=== PATIENT | female | born 1970 | race American Indian/Alaskan Native ===

== ENCOUNTER 2017-03-06 11:00 | Outpatient (CLI) | payer OTHER | END 2017-03-06 11:01 | disposition home or self-care (01) | LOC: SLR 11:00 | PROVIDERS: ATTEND Specialist | DX: G47.33 Obstructive sleep apnea (adult) (pediatric) (principal) | CPT/HCPCS: 95810 ==

== ENCOUNTER 2018-06-15 11:00 | Outpatient (CLI) | payer MEDICAID | END 2018-06-15 11:01 | disposition home or self-care (01) | LOC: SLR 11:00 | PROVIDERS: ATTEND Otolaryngology | DX: G47.33 Obstructive sleep apnea (adult) (pediatric) (principal); R40.0 Somnolence; R06.83 Snoring; I10 Essential (primary) hypertension; K21.9 Gastro-esophageal reflux disease without esophagitis; E66.9 Obesity, unspecified; M19.90 Unspecified osteoarthritis, unspecified site; Z90.89 Acquired absence of other organs | CPT/HCPCS: G0399 ==

== ENCOUNTER 2018-06-16 09:03 | Outpatient (CLI) | payer MEDICAID ==
--- NOTE | 2018-06-16 10:32 | Ultrasound Report ---
ULTRASOUND SOFT TISSUE HEAD AND NECK History: Localized swelling lump, neck Findings: Targeted ultrasound was performed in the right side of the neck. No suspicious mass or fluid collection. A normal-appearing right jugular lymph node is noted measuring 1.3 x 0.5 x 0.8 cm. Impression: No suspicious mass identified.
== END 2018-06-16 09:04 | disposition home or self-care (01) ==
LOC: US 09:03
PROVIDERS: ATTEND Otolaryngology
DX: R22.1 Localized swelling, mass and lump, neck (principal); I10 Essential (primary) hypertension; K21.9 Gastro-esophageal reflux disease without esophagitis; M19.90 Unspecified osteoarthritis, unspecified site; E66.9 Obesity, unspecified; Z90.89 Acquired absence of other organs
CPT/HCPCS: 76536

== ENCOUNTER 2018-07-21 18:09 | Emergency (ER) | payer MEDICAID ==
--- NOTE | 2018-07-21 18:51 | Emergency Department Report ---
Chief Complaint: Head Injury Stated Complaint: BLURRED VISION/SOB/ABD CRAMPS Time Seen by Provider: 07/21/18 18:48 - HPI History of Present Illness: tripped and fell down the steps that occurred a week ago has right sided JAMES states she has "blurry vision" no LOC no N/V no numbness or weakness MSE screening note: Focused history performed Due to findings the following was ordered: Ct head ED Disposition for MSE Condition: Stable
--- NOTE | 2018-07-21 20:31 | Cat Scan Report ---
PROCEDURE: CT HEAD/BRAIN WO CON TECHNIQUE: CT images of the head were obtained without the use of IV contrast HISTORY: fall, head injury, "blurry vision" COMPARISONS: None available FINDINGS: There is no CT evidence of intracranial mass, hemorrhage, acute territorial infarction, or hydrocepha lyssa. The intracranial arteries are symmetric in density. No acute fracture. The visualized paranasal sinuses and mastoids are aerated. IMPRESSION: No acute abnormality is seen. This document is electronically signed by Eloina Jarrell MD., July 21 2018 08:29:43 PM ET
--- NOTE | 2018-07-22 00:32 | Emergency Department Report ---
ED Fall HPI - General Chief Complaint: Head Injury Stated Complaint: BLURRED VISION/SOB/ABD CRAMPS Time Seen by Provider: 07/21/18 18:48 Source: patient Mode of arrival: Ambulatory - History of Present Illness Initial Comments: 48-year-old -[place] female presents to the emergency room stating that she fell down 10 stairs 1 week ago and hit the back of her head. Patient reported she was having blurred vision memory loss and leg cramping and lower back pain since the injury. Patient denies any loss of bladder or bowel control denies loss of consciousness. Patient reports she took Tylenol in aspirin. Patient reports this happened at home when she was coming down stairs that her 8-year-old left a toy that she slipped on. Patient reports that the past medical history hypertension. MD Complaint: fall When Fall Occurred: other (1 week ago) Place Fall Occurred: home Loss of Consciousness: none Prolonged Down Time?: no Symptoms Prior to Fall: none Location: head - Related Data Home Medications Medication Instructions Recorded Confirmed Last Taken Carvedilol [Coreg] 3.125 mg PO QHS 06/11/16 06/12/16 06/12/16 07:30 Lisinopril/Hydrochlorothiazide 1 tab PO QHS 06/11/16 06/12/16 06/12/16 07:30 [Zestoretic 20-25 mg] Ranitidine HCl [Heartburn Relief] 75 mg PO QDAY PRN 06/11/16 06/12/16 1 Week Ago ~06/05/16 buPROPion SR [Wellbutrin SR] 150 mg PO QAM 06/11/16 06/12/16 2 Days Ago ~06/10/16 Previous Rx's Medication Instructions Recorded Last Taken Type Ondansetron [Zofran TAB] 4 mg PO Q8HR PRN #14 tablet 06/12/16 Unknown Rx oxyCODONE /ACETAMINOPHEN [Percocet 1 tab PO Q4HR PRN #20 tab 06/12/16 Unknown Rx 5/325] traMADol [Ultram 50 MG tab] 50 mg PO Q6HR PRN #14 tablet 06/12/16 Unknown Rx Ibuprofen [Ibu] 600 mg PO Q8H PRN #30 tablet 07/22/18 Unknown Rx Allergies Allergy/AdvReac Type Severity Reaction Status Date / Time No Known Allergies Allergy Verified 07/21/18 18:17 ED Review of Systems ROS: Stated complaint: BLURRED VISION/SOB/ABD CRAMPS Other details as noted in HPI Comment: All other systems reviewed and negative Constitutional: denies: chills, fever Gastrointestinal: denies: abdominal pain, nausea, diarrhea ED Past Medical Hx - Past Medical History Hx Hypertension: Yes (FOR 14 YRS; no chest pain) Hx GERD: Yes Hx Renal Disease: No Hx Arthritis: Yes (IN RIGHT HIP) Hx Seizures: No Hx HIV: No Additional medical history: PITUITARY GLAND TUMOR - Surgical History Additional Surgical History: TUBAL LIGATION. HERNIA REPAIR - Social History Smoking Status: Never Smoker Substance Use Type: None - Medications Home Medications: Home Medications Medication Instructions Recorded Confirmed Last Taken Type Carvedilol [Coreg] 3.125 mg PO QHS 06/11/16 06/12/16 06/12/16 07:30 History Lisinopril/Hydrochlorothiazide 1 tab PO QHS 06/11/16 06/12/16 06/12/16 07:30 History [Zestoretic 20-25 mg] Ranitidine HCl [Heartburn Relief] 75 mg PO QDAY PRN 06/11/16 06/12/16 1 Week Ago History ~06/05/16 buPROPion SR [Wellbutrin SR] 150 mg PO QAM 06/11/16 06/12/16 2 Days Ago History ~06/10/16 Ondansetron [Zofran TAB] 4 mg PO Q8HR PRN #14 tablet 06/12/16 Unknown Rx oxyCODONE /ACETAMINOPHEN [Percocet 1 tab PO Q4HR PRN #20 tab 06/12/16 Unknown Rx 5/325] traMADol [Ultram 50 MG tab] 50 mg PO Q6HR PRN #14 tablet 06/12/16 Unknown Rx Ibuprofen [Ibu] 600 mg PO Q8H PRN #30 tablet 07/22/18 Unknown Rx ED Physical Exam - General Limitations: No Limitations General appearance: alert, in no apparent distress - Head Head exam: Present: atraumatic, normocephalic - Eye Eye exam: Present: normal appearance - ENT ENT exam: Present: mucous membranes moist - Expanded Neurological Exam Expanded Cranial nerves: EOM's Intact: Normal, Gag Reflex: Normal, Tongue Deviation: Normal, Nystagmus: Normal, Facial Sensation: Normal, Facial Palsy with Forehead Movement: Normal, Facial Palsy without Forehead Movement: Normal Cerebellar function: Finger to Nose: Normal, Heel to Rodriguez: Normal, Romberg: Normal Upper motor neuron: Erick Neglect: Normal, Pronator Drift: Normal, Babinski Sign: Normal, Sensory Extinction: Normal Sensory exam: Upper Extremity Light Touch: Normal, Upper Extremity Pin Prick: Normal, Upper Extremity Temperature: Normal, UE 2 Point Discrimination: Normal, Lower Extremity Light Touch: Normal, Lower Extremity Pin Prick: Normal, Lower Extremity Temperature: Normal Motor strength exam: RUE: 5, LUE: 5, RLE: 5, LLE: 5 Best Eye Response (Elmer): (4) open spontaneously Best Motor Response (Elmer): (6) obeys commands Best Verbal Response (Elmer): (5) oriented Bridger Total: 15 - Psychiatric Psychiatric exam: Present: normal affect, normal mood - Skin Skin exam: Present: warm, dry, intact, normal color. Absent: rash ED Course Vital Signs 07/21/18 07/21/18 18:46 23:39 Temperature 98.7 F Pulse Rate 83 78 Respiratory 18 18 Rate Blood Pressure 151/91 Blood Pressure 162/99 [Left] O2 Sat by Pulse 100 99 Oximetry ED Medical Decision Making - Medical Decision Making Patient has been evaluated by this provider ACC.. CT negative Patient be discharged home on ibuprofen. Patient reports she does not need a work excuse. Critical care attestation.: If time is entered above; I have spent that time in minutes in the direct care of this critically ill patient, excluding procedure time. ED Disposition Clinical Impression: Fall Qualifiers: Encounter type: initial encounter Qualified Code(s): W19.XXXA - Unspecified fall, initial encounter Minor head injury without loss of consciousness Qualifiers: Encounter type: initial encounter Qualified Code(s): S09.90XA - Unspecified injury of head, initial encounter Disposition: TO HOME OR SELFCARE Is pt being admited?: No Does the pt Need Aspirin: No Condition: Stable Instructions: Fall Prevention (ED), Minor Head Injury (ED) Additional Instructions: Pain medication as needed. Prescriptions: Ibuprofen [Ibu] 600 mg PO Q8H PRN #30 tablet PRN Reason: Pain , Severe (7-10) Referrals: DARYL CAMP MD [Primary Care Provider] - 3-5 Days
[2018-07-22 19:33] VITALS: BP 162/99
== END 2018-07-22 00:35 | disposition home or self-care (01) ==
LOC: ED 18:09
DX: S09.90XA Unspecified injury of head, initial encounter (principal); I10 Essential (primary) hypertension; K21.9 Gastro-esophageal reflux disease without esophagitis; M25.551 Pain in right hip; Z98.51 Tubal ligation status; Z98.890 Other specified postprocedural states; W10.8XXA Fall (on) (from) other stairs and steps, initial encounter; Y93.89 Activity, other specified; Y92.098 Other place in other non-institutional residence as the place of occurrence of the external cause; Y99.8 Other external cause status
CPT/HCPCS: 70450; 99283

== ENCOUNTER 2018-09-09 07:05 | Day surgery (SDC) | payer MEDICAID ==
[~2018-09-09 07:05] MED LIST: NACL 0.9% 1000 ML 1,000 ML IV SCH
--- NOTE | 2018-09-09 08:36 | Anesthesia Day of Surgery ---
Anesthesia Day of Surgery - Day of Surgery Patient Examined: Yes Patient H&P Reviewed: Yes Patient is NPO: Yes Beta Blockers: Yes
--- NOTE | 2018-09-09 08:37 | Anesthesia Consultation ---
Anesthesia Consult and Med Hx Date of service: 09/09/18 - Airway Anesthetic Teeth Evaluation: Good ROM Head & Neck: Adequate Mental/Hyoid Distance: Adequate Mallampati Class: Class II Intubation Access Assessment: Good - Pre-Operative Health Status ASA Pre-Surgery Classification: ASA2 Proposed Anesthetic Plan: MAC - Pulmonary Hx Smoking: Yes (CIGARETTES/ 2 CIGARETTES PD X 30 YRS) Hx Sleep Apnea: No - Cardiovascular System Hx Hypertension: Yes - Central Nervous System Hx Seizures: No Hx Psychiatric Problems: Yes (Depression) - Gastrointestinal Hx Ulcer: No Hx Gastroesophageal Reflux Disease: Yes - Endocrine Hx Renal Disease: No Hx Non-Insulin Dependent Diabetes: No - Hematic Hx Anemia: No - Other Systems Hx Cancer: No Hx Obesity: Yes (BMI= 39)
[2018-09-09] MEDS ORDERED: DIPRIVAN 10 MG/ML IV ONE (10:19)
[2018-09-09 11:19] VITALS: BP 123/69
== END 2018-09-09 07:06 | disposition home or self-care (01) ==
LOC: GIO 07:05
PROVIDERS: ATTEND Specialist
DX: K30 Functional dyspepsia (principal); K44.9 Diaphragmatic hernia without obstruction or gangrene; E66.01 Morbid (severe) obesity due to excess calories; I10 Essential (primary) hypertension; K21.9 Gastro-esophageal reflux disease without esophagitis; M19.90 Unspecified osteoarthritis, unspecified site; F32.9 Major depressive disorder, single episode, unspecified; Z98.84 Bariatric surgery status; Z79.899 Other long term (current) drug therapy; Z87.891 Personal history of nicotine dependence; Z98.41 Cataract extraction status, right eye; Z68.41 Body mass index [BMI] 40.0-44.9, adult; Z98.51 Tubal ligation status; Z98.890 Other specified postprocedural states
CPT/HCPCS: 43235; 81025; J2704; J7030

== ENCOUNTER 2018-09-16 05:41 | Observation (INO) | payer MEDICAID ==
--- NOTE | 2018-09-11 10:04 | Anesthesia Consultation ---
Anesthesia Consult and Med Hx Date of service: 09/16/18 - Airway Anesthetic Teeth Evaluation: Good ROM Head & Neck: Adequate Mallampati Class: Class II Intubation Access Assessment: Good - Pre-Operative Health Status ASA Pre-Surgery Classification: ASA3 Proposed Anesthetic Plan: General - Pulmonary Hx Smoking: Yes (SINCE AGE 15; QUIT 2013) Hx Sleep Apnea: Yes - Cardiovascular System Hx Hypertension: Yes (2002) - Central Nervous System Hx Seizures: No Hx Psychiatric Problems: Yes - Gastrointestinal Hx Ulcer: No - Endocrine Hx Renal Disease: No Hx Non-Insulin Dependent Diabetes: No - Hematic Hx Anemia: No - Other Systems Hx Alcohol Use: Yes Hx Cancer: No Hx Obesity: Yes
[~2018-09-16 05:41] MED LIST changes: +ANCEF/STERILE WATER 2 GM/20 ML 2 GM/20 ML SYRINGE IV NR; +FLAGYL 500 MG/100 ML 500 MG/100 ML BAG IV NR; +LOVENOX SUB-Q NR; -NACL 0.9% 1000 ML 1,000 ML IV SCH; +TRANSDERM-SCOP TD SCH
[2018-09-16] MEDS ORDERED: LACTATED RINGERS 1,000 ML IV SCH ×2 (06:00→09:00)
[2018-09-16] MEDS ORDERED: NACL BACTERIOSTATIC INFILTRATI ONE (06:30)
[2018-09-16] MEDS ORDERED: VERSED IV NR (06:54)
[2018-09-16] MEDS ORDERED: PEPCID IV NR (07:00)
[2018-09-16] MEDS ORDERED: XYLOCAINE 1% 20 mL ONE (07:13)
[2018-09-16] MEDS ORDERED: MARCAINE-EPI 0.5%-1:200,000 INFILTRATI ONE ×2 (07:13→08:21)
[2018-09-16] MEDS ORDERED: DIPRIVAN 10 MG/ML IV ONE (07:15)
[2018-09-16] MEDS ORDERED: SUBLIMAZE ONE (07:15)
[2018-09-16] MEDS ORDERED: ROBINUL ONE ×2 (07:15→09:08)
[2018-09-16] MEDS ORDERED: LOVENOX SUB-Q NR (08:00)
[2018-09-16] MEDS ORDERED: ANCEF/STERILE WATER 2 GM/20 ML 2 GM/20 ML SYRINGE IV NR (08:00)
[2018-09-16] MEDS ORDERED: FLAGYL 500 MG/100 ML 500 MG/100 ML BAG IV NR (08:00)
[2018-09-16] MEDS ORDERED: NORCO PO PRN (08:05)
[2018-09-16] MEDS ORDERED: REGLAN IV PRN (08:05)
[2018-09-16] MEDS ORDERED: APRESOLINE IV PRN (08:05)
[2018-09-16] MEDS ORDERED: ZOFRAN IV PRN (08:05)
[2018-09-16] MEDS ORDERED: NACL 0.9% 250ML 250 ML ONE (08:07)
--- NOTE | 2018-09-16 08:09 | Anesthesia Day of Surgery ---
Anesthesia Day of Surgery - Day of Surgery Patient Examined: Yes Patient H&P Reviewed: Yes Patient is NPO: Yes Beta Blockers: Yes (took this morning)
[2018-09-16] MEDS ORDERED: XYLOCAINE 1% 20 mL INFILTRATI ONE (08:22)
[2018-09-16] MEDS ORDERED: NACL 0.9% IR ONE ×2 (08:23→12:37)
[2018-09-16] MEDS ORDERED: QUELICIN ONE (09:08)
[2018-09-16] MEDS ORDERED: ZEMURON IV ONE (09:08)
[2018-09-16] MEDS ORDERED: XYLOCAINE MPF 2% ONE (09:08)
[2018-09-16] MEDS ORDERED: BLOXIVERZ ONE (09:08)
[2018-09-16] MEDS ORDERED: DECADRON ONE (09:08)
[2018-09-16] MEDS: SUBLIMAZE IV PRN ×2 (09:40→10:00)
[2018-09-16] MEDS: MYLICON PO PRN ×2 (10:30→15:30)
[2018-09-16] MEDS: DILAUDID IV PRN ×2 (12:32→19:31)
[2018-09-16] MEDS: COREG PO SCH ×2 (13:18→22:20)
[2018-09-16] MEDS: ZESTRIL PO SCH (13:18)
[2018-09-16] MEDS: TORADOL IV SCH ×3 (15:29→22:20)
--- NOTE | 2018-09-16 15:30 | Post Anesthesia Evaluation ---
- Post Anesthesia Evaluation Patient Participated: Yes Airway Patent: Yes Stable Respiratory Function: Yes Nausea/Vomiting: No Temp > 96.8F: Yes Pain Manageable: Yes Adequeate Hydration: Yes Anesthesia Complications: No
[2018-09-17] MEDS: DILAUDID IV PRN (02:19)
[2018-09-17 05:15] LABS: Basophils % (Auto) 0.1 % (0.0-1.8); Hematocrit 32.9 % (30.3-42.9); Lymphocytes # (Auto) 1.4 K/mm3 (1.2-5.4); Lymphocytes % (Auto) 7.5 % (13.4-35.0); Mean Corpuscular HGB Conc 33 % (30-34); Mean Corpuscular Volume 75 fl (79-97); Monocytes # (Auto) 0.9 K/mm3 (0.0-0.8); Monocytes % (Auto) 4.9 % (0.0-7.3); Platelet Count 405 K/mm3 (140-440); Red Blood Count 4.39 M/mm3 (3.65-5.03); Red Cell Distribution Width 15.4 % (13.2-15.2)
[2018-09-17] MEDS: TORADOL IV SCH ×2 (05:15→08:29)
[2018-09-17 05:41] LABS: Alanine Aminotransferase 19 units/L (7-56); Albumin 3.7 g/dL (3.9-5); BUN/Creatinine Ratio 14; Blood Urea Nitrogen 15 mg/dL (7-17); Calcium 8.5 mg/dL (8.4-10.2); Hemolysis Index 3
--- NOTE | 2018-09-17 06:14 | Discharge Summary ---
Providers - Providers Date of Admission: 09/16/18 08:05 Date of discharge: 09/17/18 Attending physician: LUC ESCAMILLA Primary care physician: DARYL CAMP Hospitalization Reason for admission: postop Condition: Good Procedures: 09/16/18: Laparoscopic RYGB Hospital course: 48F admitted after her operation for routine monitoring. She was managed on the general surgical floor. She had no issues, tolerated a CLD, ambulated, and was dc home POD1. Disposition: DC-01 TO HOME OR SELFCARE Core Measure Documentation - Palliative Care Palliative Care/ Comfort Measures: Not Applicable - Core Measures Any of the following diagnoses?: none - VTE Discharge Requirements Deep Vein Thrombosis/Pulmonary Embolism Present on Admission: No - Acute KS Discharge Requirements Aspirin at discharge: No Reason for no aspirin on DC: Surgical contraindication - Heart Failure Discharge Requirements DAMON/ARB for LVSD if EF <40%: Not Applicable - Stroke Discharge Requirements Statin for LDL = or >70 mg/dl on DC: Not Applicable Exam - Physical Exam Narrative exam: Gen: AAO, NAD Heart: RRR Lungs: Clear Abd: MO, soft, NT, ND. Bandages c/d/i - Constitutional Vitals: Temp Pulse Resp BP Pulse Ox 98.2 F 66 17 131/81 99 09/17/18 05:11 09/17/18 05:11 09/17/18 05:11 09/17/18 05:11 09/17/18 05:11 Plan Diet: clear liquids Wound: keep clean and dry Special Instructions: no heavy lifting Additional Instructions: Vinnie Escamilla as scheduled Follow up with: DARYL CAMP MD [Primary Care Provider] - 7 Days Prescriptions: Ketorolac [Toradol] 10 mg PO Q6H PRN 1 Days #4 tablet PRN Reason: Pain
[2018-09-17] MEDS: ZESTRIL PO SCH ×2 (08:28→10:00)
[2018-09-17] MEDS: COREG PO SCH ×2 (08:29→10:00)
[2018-09-17] MEDS ORDERED: LOVENOX SUB-Q SCH (10:00)
[2018-09-17 12:36] VITALS: BP 110/76
== END 2018-09-17 12:20 | disposition home or self-care (01) ==
LOC: OR 05:41 → 3B-SURG 08:05 → EDSTATUS 12:00
PROVIDERS: ADMIT Specialist; ATTEND Specialist
DX: E66.01 Morbid (severe) obesity due to excess calories (principal); E78.00 Pure hypercholesterolemia, unspecified; R06.02 Shortness of breath; I10 Essential (primary) hypertension; F32.9 Major depressive disorder, single episode, unspecified; E78.5 Hyperlipidemia, unspecified; K30 Functional dyspepsia; K21.9 Gastro-esophageal reflux disease without esophagitis; Z98.890 Other specified postprocedural states
CPT/HCPCS: 36415; 43281; 43644; 80053; 81025; 85025; 96372; 96374; 96375; 96376; A4217; G0378; J0330; J0690; J1100; J1170; J1650; J1885; J2250; J2405; J2704; J2710; J3010; J7050; J7120

== ENCOUNTER 2018-09-22 18:26 | Observation (INO) | payer MEDICAID ==
--- NOTE | 2018-09-22 18:39 | Emergency Department Report ---
Blank Doc - Documentation Documentation: This is a 48-year-old female that presents with chest pain, SOB, and abdominal pain. Patient is 6 days post op for gastro bypass. This initial assessment/diagnostic orders/clinical plan/treatment(s) is/are subject to change based on patient's health status, clinical progression and re- assessment by fellow clinical providers in the ED. Further treatment and workup at subsequent clinical providers discretion. Patient/guardians urged not to elope from the ED as their condition may be serious if not clinically assessed and managed. Initial orders include: 1- Patient sent to MAIN ED for further evaluation and treatment 2- labs 3- EKG 4- CXR
[2018-09-22 19:01] LABS: Basophils # (Auto) 0.2 K/mm3 (0.0-0.1); Basophils % (Auto) 1.2 % (0.0-1.8); Eosinophils # (Auto) 0.6 K/mm3 (0.0-0.4); Eosinophils % (Auto) 4.1 % (0.0-4.3); Hematocrit 37.8 % (30.3-42.9); Hemoglobin 12.2 gm/dl (10.1-14.3); Lymphocytes # (Auto) 2.2 K/mm3 (1.2-5.4); Lymphocytes % (Auto) 14.6 % (13.4-35.0); Mean Corpuscular HGB Conc 32 % (30-34); Mean Corpuscular Volume 75 fl (79-97); Monocytes # (Auto) 0.5 K/mm3 (0.0-0.8); Monocytes % (Auto) 3.6 % (0.0-7.3); Platelet Count 459 K/mm3 (140-440); Red Blood Count 5.06 M/mm3 (3.65-5.03); Red Cell Distribution Width 15.2 % (13.2-15.2)
[2018-09-22 19:06] LABS: INR 1.3 (0.87-1.13)
[2018-09-22 19:07] LABS: Partial Thromboplastin Time 31.2 Sec. (24.2-36.6)
[2018-09-22 19:16] LABS: Alanine Aminotransferase 10 units/L (7-56); Albumin 3.7 g/dL (3.9-5); BUN/Creatinine Ratio 12; Blood Urea Nitrogen 13 mg/dL (7-17); Calcium 9.7 mg/dL (8.4-10.2); Hemolysis Index 6
[2018-09-22] MEDS ORDERED: SUBLIMAZE IV ONE (22:00)
[2018-09-22] MEDS ORDERED: ZOFRAN IV ONE (22:00)
--- NOTE | 2018-09-22 22:05 | Emergency Department Report ---
HPI - General Chief Complaint: Chest Pain Time Seen by Provider: 09/22/18 18:35 - HPI HPI: Room 17 The patient is a 48-year-old female presenting with chief complaint chest pain and abdominal pain. The patient is about 6 days post gastric bypass performed by Dr. Escamilla. The patient states 2 days ago she developed intermittent left- sided chest pain described as sharp in nature and radiating to her back. Patient denies pleurisy or history of fever states she become short of breath with chest pain. Patient denies nausea/vomiting or diaphoresis. The patient states this morning at 03:00 after taking melatonin to rest she developed some epigastric abdominal pain. Patient gives her abdominal pain score of "20/10." Patient states her last stress test occurred April 2018 but she's never had a cardiac catheterization Location: [See above] Duration: [See above] Quality: [See above] Severity: [See above] Modifying factors: [see above] Context: [see above] Mode of transportation: [not driving] ED Past Medical Hx - Past Medical History Previous Medical History?: Yes Hx Hypertension: Yes (2002) Hx GERD: Yes Hx Arthritis: Yes (IN RIGHT HIP) Additional medical history: PITUITARY GLAND TUMOR - Surgical History Past Surgical History?: Yes Additional Surgical History: TUBAL LIGATION. HERNIA REPAIR. Gastric bypass 09/2018 - Family History Family history: no significant - Social History Smoking Status: Former Smoker (none 5 years) Substance Use Type: None (denies illicit drug use), Alcohol (rarely) - Medications Home Medications: Home Medications Medication Instructions Recorded Confirmed Last Taken Type Carvedilol [Coreg] 12.5 mg PO BID 09/10/18 09/16/18 09/16/18 05:20 History Lisinopril/Hydrochlorothiazide 1 tab PO QDAY 09/10/18 09/16/18 09/15/18 History [Zestoretic 20-25 mg] hydrOXYzine HCL [Atarax] 25 mg PO DAILY 09/10/18 09/16/18 09/14/18 History Ketorolac [Toradol] 10 mg PO Q6H PRN 1 Days #4 tablet 09/17/18 Unknown Rx ED Review of Systems ROS: Stated complaint: CHEST PAIN/SOB/STOMACH PAIN Other details as noted in HPI Constitutional: denies: diaphoresis Eyes: denies: eye pain ENT: denies: throat pain Respiratory: shortness of breath Cardiovascular: chest pain Endocrine: no symptoms reported Gastrointestinal: abdominal pain. denies: nausea, vomiting Genitourinary: denies: dysuria Musculoskeletal: back pain Neurological: denies: headache Physical Exam - Physical Exam Vital Signs: Vital Signs 09/22/18 18:33 Temperature 98 F Pulse Rate 80 Respiratory 20 Rate Blood Pressure 120/83 O2 Sat by Pulse 98 Oximetry Physical Exam: GENERAL: The patient is well-developed well-nourished female sitting on stretcher appearing to be in mild discomfort. [] HEENT: Normocephalic. Atraumatic. Extraocular motions are intact. Patient has moist mucous membranes. NECK: Supple. No meningitic signs are noted. There is no adenopathy noted. CHEST/LUNGS: Clear to auscultation. There is no respiratory distress noted. HEART/CARDIOVASCULAR: Regular. There is no tachycardia. There is no gallop rub or murmur. ABDOMEN: Abdomen is soft, with postop tenderness. Surgical sites are clean dry and intact. Patient has normal bowel sounds. There is no abdominal distention. SKIN: There is no rash. There is no edema. There is no diaphoresis. NEURO: The patient is awake, alert, and oriented. The patient is cooperative. The patient has normal speech and gait. MUSCULOSKELETAL: There is no evidence of acute injury. ED Course Vital Signs 09/22/18 18:33 Temperature 98 F Pulse Rate 80 Respiratory 20 Rate Blood Pressure 120/83 O2 Sat by Pulse 98 Oximetry ED Medical Decision Making - Lab Data Result diagrams: 09/22/18 18:46 09/22/18 18:46 Laboratory Tests 09/22/18 09/22/18 09/22/18 18:46 18:46 18:46 WBC 14.9 H RBC 5.06 H Hgb 12.2 Hct 37.8 MCV 75 L MCH 24 L MCHC 32 RDW 15.2 Plt Count 459 H Lymph % (Auto) 14.6 Wy[place] % (Auto) 3.6 Eos % (Auto) 4.1 Baso % (Auto) 1.2 Lymph # 2.2 Wythe # 0.5 Eos # 0.6 H Baso # 0.2 H Seg Neutrophils % 76.5 H Seg Neutrophils # 11.4 H PT 15.9 H INR 1.30 H APTT 31.2 Sodium 135 L Potassium 3.9 Chloride 95.3 L Carbon Dioxide 21 L Anion Gap 23 BUN 13 Creatinine 1.1 Estimated GFR > 60 BUN/Creatinine Ratio 12 Glucose 75 Calcium 9.7 Total Bilirubin 0.30 AST 13 ALT 10 Alkaline Phosphatase 66 Troponin T Total Protein 7.6 Albumin 3.7 L Albumin/Globulin Ratio 0.9 09/22/18 09/22/18 18:46 20:56 WBC RBC Hgb Hct MCV MCH MCHC RDW Plt Count Lymph % (Auto) Wy[place] % (Auto) Eos % (Auto) Baso % (Auto) Lymph # Wy[place] # Eos # Baso # Seg Neutrophils % Seg Neutrophils # PT INR APTT Sodium Potassium Chloride Carbon Dioxide Anion Gap BUN Creatinine Estimated GFR BUN/Creatinine Ratio Glucose Calcium Total Bilirubin AST ALT Alkaline Phosphatase Troponin T < 0.010 < 0.010 Total Protein Albumin Albumin/Globulin Ratio - EKG Data -: EKG Interpreted by Me EKG shows normal: sinus rhythm Rate: normal - EKG Data When compared to previous EKG there are: previous EKG unavailable Interpretation: nonspecific ST-T wave ritu (T-wave inversion in lead V2) - Radiology Data Radiology results: report reviewed (CT chest, CT abdomen and pelvis, chest x- ray), image reviewed (chest x-ray, CT chest, CT abdomen and pelvis) interpreted by me: Chest x-ray-no focal infiltrates, [place] [address] Cat Scan Report Signed Patient: RICHARD PAZ MR#: [id number] [birth year] : 1970 Acct:[id number] Age/Sex: 48 / F ADM Date: 09/22/18 Loc: ED Attending Dr: Ordering Physician: TATIANA PINA MD Date of Service: 09/22/18 Procedure(s): CT abdomen pelvis w con Accession Number(s): [id number] cc: TATIANA PINA MD PROCEDURE: CT ABDOMEN PELVIS W CON TECHNIQUE: Computerized axial tomography of the abdomen and pelvis was performed after the administration of IV iodinated nonionic contrast. HISTORY: epigastric abdominal pain. Recent gastric bypass COMPARISONS: None . FINDINGS: Liver: Normal size and attenuation. Spleen: Normal size and attenuation. Gallbladder and biliary system: Normal. Pancreas: Normal. Adrenals: Normal. Kidneys: Normal. GI tract: There has been gastric bypass surgery. No evidence of obstruction. The cecum, appendix region and colon are normal. Lymph nodes and mesentery: Normal. Vasculature: Normal.. Bladder: Normal. Reproductive organs: Normal. Peritoneum: There is slight fluid in the lower pelvis, this may be physiologic. Musculoskeletal structures: No significant abnormality. Other: None. IMPRESSION: There is no evidence of intestinal or urinary tract obstruction. No ileus or enteritis. The appendix region is normal. The patient has had previous gastric bypass surgery. There is fatty infiltration of the liver. Minimal fluid in the lower pelvis is noted, this may be physiologic.. This document is electronically signed by Rupali Padilla DO., September 23 2018 01 :05:33 AM ET Transcribed By: [facility] Dictated By: RUPALI PADILLA MD Electronically Authenticated By: RUPALI PADILLA MD Signed Date/Time: 09/23/18106 DD/ TD/TT: 09/23/1835 [facility] [address] [place] [address] Cat Scan Report Signed Patient: RICHARD PAZ MR#: [id number] [birth year] : 1970 Acct:[id number] Age/Sex: 48 / F ADM Date: 09/22/18 Loc: ED Attending Dr: Ordering Physician: TATIANA PINA MD Date of Service: 09/22/18 Procedure(s): CT angio chest Accession Number(s): [id number] cc: TATIANA PINA MD PROCEDURE: CT ANGIO CHEST TECHNIQUE: Computerized tomographic angiography of the chest was performed after the IV injection of iodinated nonionic contrast including image processing. The image data was postprocessed using 2-dimensional multiplanar reformatted (MPR) and 3-dimensional (MIP and/or volume rendered) techniques. Automated exposure control, adjustment of mA and/or kV according to patient size, or iterative reconstruction dose optimization techniques were utilized. CT DOSE LENGTH PRODUCT: mGycm HISTORY: left chest pain radiating to back COMPARISONS: Chest x-ray 09/22/2018 . FINDINGS: Heart and pericardium: Normal. Thoracic aorta: Normal. Pulmonary vasculature: No evidence of pulmonary embolus or congestion.. Lymph nodes: No enlarged thoracic lymph nodes. Lungs: There is a very mild atelectatic changes in the left lower lobe and to lesser extent in the right lower lobe.. Pleural space: There is a very small left-sided pleural effusion.. Musculoskeletal structures: No significant abnormality. Upper abdominal structures: No significant abnormality. IMPRESSION: No evidence of pulmonary embolus, vascular congestion, or aortic dissection. Mild atelectatic changes in the left lower lobe with small left-sided effusion. Minimal atelectatic changes in the right lower lobe. This document is electronically signed by Nic Layton MD., September 23 2018 12:5 2:34 AM ET Transcribed By: RB Dictated By: NIC LAYTON MD Electronically Authenticated By: NIC LAYTON MD Signed Date/Time: 09/23/18 0055 DD/ TD/TT: 09/23/1822 [facility] [address] [place] [address] XRay Report Signed Patient: RICHARD PAZ MR#: [id number] [birth year] : 1970 Acct:[id number] Age/Sex: 48 / F ADM Date: 09/22/18 Loc: ED Attending Dr: Ordering Physician: JAMILA GONZALES NP Date of Service: 09/22/18 Procedure(s): XR chest routine 2V Accession Number(s): [id number] cc: JAMILA GONZALES NP Fluoro Time In Minutes: PROCEDURE: XR CHEST ROUTINE 2V TECHNIQUE: PA and lateral chest radiographs were obtained. HISTORY: Chest Pain COMPARISONS: None. FINDINGS: Heart: Normal. Mediastinum/Vessels: Normal. Lungs/Pleural space: No infiltrate, effusion, or pneumothorax. Bony thorax: No acute osseous abnormality. IMPRESSION: No pulmonary infiltrates are identified. This document is electronically signed by Eloina Jarrell MD., September 22 2018 10:08:20 PM ET Transcribed By: [facility] Dictated By: ELOINA JARRELL M.D. Electronically Authenticated By: ELOINA JARRELL M.D. Signed Date/Time: 09/22/182209 DD/ 28 TD/TT: 09/22/181928 - Differential Diagnosis ACS, PE postop infection Critical care attestation.: If time is entered above; I have spent that time in minutes in the direct care of this critically ill patient, excluding procedure time. ED Disposition Clinical Impression: Chest pain Disposition: DC-09 OP ADMIT IP TO THIS HOSP Is pt being admited?: Yes Does the pt Need Aspirin: Yes Condition: Fair Instructions: Chest Pain (ED) Referrals: EMILY MASSEY MD [Referring] - 3-5 Days Time of Disposition: 01:11 (hospitalists paged (Dr. Marcelina Wall))
--- NOTE | 2018-09-22 22:10 | XRay Report ---
PROCEDURE: XR CHEST ROUTINE 2V TECHNIQUE: PA and lateral chest radiographs were obtained. HISTORY: Chest Pain COMPARISONS: None. FINDINGS: Heart: Normal. Mediastinum/Vessels: Normal. Lungs/Pleural space: No infiltrate, effusion, or pneumothorax. Bony thorax: No acute osseous abnormality. IMPRESSION: No pulmonary infiltrates are identified. This document is electronically signed by Eloina Jarrell MD., September 22 2018 10:08:20 PM ET
[2018-09-22] MEDS ORDERED: DILAUDID IV ONE (23:00)
--- NOTE | 2018-09-23 00:55 | Cat Scan Report ---
PROCEDURE: CT ANGIO CHEST TECHNIQUE: Computerized tomographic angiography of the chest was performed after the IV injection of iodinated nonionic contrast including image processing. The image data was postprocessed using 2-di mensional multiplanar reformatted (MPR) and 3-dimensional (MIP and/or volume rendered) techniques. Au tomated exposure control, adjustment of mA and/or kV according to patient size, or iterative reconstr uction dose optimization techniques were utilized. CT DOSE LENGTH PRODUCT: mGycm HISTORY: left chest pain radiating to back COMPARISONS: Chest x-ray 09/22/2018 . FINDINGS: Heart and pericardium: Normal. Thoracic aorta: Normal. Pulmonary vasculature: No evidence of pulmonary embolus or congestion.. Lymph nodes: No enlarged thoracic lymph nodes. Lungs: There is a very mild atelectatic changes in the left lower lobe and to lesser extent in the r ight lower lobe.. Pleural space: There is a very small left-sided pleural effusion.. Musculoskeletal structures: No significant abnormality. Upper abdominal structures: No significant abnormality. IMPRESSION: No evidence of pulmonary embolus, vascular congestion, or aortic dissection. Mild atelectatic changes in the left lower lobe with small left-sided effusion. Minimal atelectatic changes in the right lower lobe. This document is electronically signed by Carlos Alberto Layton MD., September 23 2018 12:52:34 AM ET
--- NOTE | 2018-09-23 01:07 | Cat Scan Report ---
PROCEDURE: CT ABDOMEN PELVIS W CON TECHNIQUE: Computerized axial tomography of the abdomen and pelvis was performed after the administr ation of IV iodinated nonionic contrast. HISTORY: epigastric abdominal pain. Recent gastric bypass COMPARISONS: None . FINDINGS: Liver: Normal size and attenuation. Spleen: Normal size and attenuation. Gallbladder and biliary system: Normal. Pancreas: Normal. Adrenals: Normal. Kidneys: Normal. GI tract: There has been gastric bypass surgery. No evidence of obstruction. The cecum, appendix reg ion and colon are normal. Lymph nodes and mesentery: Normal. Vasculature: Normal.. Bladder: Normal. Reproductive organs: Normal. Peritoneum: There is slight fluid in the lower pelvis, this may be physiologic. Musculoskeletal structures: No significant abnormality. Other: None. IMPRESSION: There is no evidence of intestinal or urinary tract obstruction. No ileus or enteritis. The appendix region is normal. The patient has had previous gastric bypass surgery. There is fatty infiltration of the liver. Minimal fluid in the lower pelvis is noted, this may be physiologic.. This document is electronically signed by Rupali Padilla DO., September 23 2018 01:05:33 AM ET
[2018-09-23] MEDS ORDERED: ASPIRIN PO ONE (01:12)
[2018-09-23] MEDS ORDERED: SODIUM CHLORIDE FLUSH SYRINGE 10 ML IV PRN (01:31)
[2018-09-23] MEDS ORDERED: ZOFRAN IV PRN (01:31)
[2018-09-23] MEDS ORDERED: MORPHINE IV PRN (01:31)
[2018-09-23] MEDS ORDERED: TYLENOL PO PRN (01:31)
[2018-09-23] MEDS ORDERED: PERCOCET 5/325 PO PRN (01:32)
[2018-09-23] MEDS ORDERED: DILAUDID IV PRN (01:32)
[2018-09-23] MEDS ORDERED: NITROSTAT SL PRN (01:33)
[2018-09-23] MEDS ORDERED: PROVENTIL IH PRN (01:35)
--- NOTE | 2018-09-23 02:12 | History and Physical Report ---
<KENNETH TRIVEDI - Last Filed: 09/23/18 02:48> History of Present Illness Date of examination: 09/23/18 Date of admission: 09/23/2018 Chief complaint: chest pain History of present illness: 48-year-old -[place]ian female with history of hypertension, GERD, arthritis, morbid obesity (s/p gastric bypass surgery 09/16/18) who presents to [facility] ED with complaints of abdominal pain. Patient states that she has been experiencing intermittent abdominal pain that radiates to her chest and back for the past 2 days. She describes her pain as sharp and rates it 10/10. There are no aggravating factors and it is relieved with pain medicine and rest. The chest pain is followed by intermittent shortness of breath. Patient admits to haven't stress test in April of this year. She states it was normal and denies additional cardiac workup. Patient has history of GERD and states that taken any medicine for treatment. Additionally patient complains of intermittent discomfort with urination. The discomfort is usually present with initiation of urination. She has an established PCP, Dr. Steven. Admits: Chest pain, SOB, discomfort with urination Denies: Cough, fever, n/v/d, diaphoresis, headache, visual disturbance, or gait dysfunction Past History Past Medical History: arthritis (rt hip), hypertension, other (Morbid Obesity, ) Past Surgical History: hernia repair, Other (s/p gastric bypass 09/16/18, tubal ligation) Social history: lives with family Family history: no significant family history Medications and Allergies Allergies Allergy/AdvReac Type Severity Reaction Status Date / Time No Known Allergies Allergy Verified 09/10/18 16:39 Home Medications Medication Instructions Recorded Confirmed Last Taken Type Carvedilol [Coreg] 12.5 mg PO BID 09/10/18 09/23/18 09/16/18 05:20 History Lisinopril/Hydrochlorothiazide 1 tab PO QDAY 09/10/18 09/23/18 09/15/18 History [Zestoretic 20-25 mg] hydrOXYzine HCL [Atarax] 25 mg PO DAILY PRN 09/10/18 09/23/18 09/14/18 History Simethicone 80 mg PO AC #20 tab.chew 09/23/18 Unknown Rx Active Meds: Active Medications Acetaminophen (Tylenol) 650 mg PO Q4H PRN PRN Reason: Pain MILD(1-3)/Fever >100.5/JAMES Albuterol (Proventil) 2.5 mg IH Q4HRT PRN PRN Reason: Shortness Of Breath Aspirin (Baby Aspirin) 81 mg PO QDAY [facility] Atorvastatin Calcium (Lipitor) 10 mg PO QHS [facility]INE Carvedilol (Coreg) 12.5 mg PO BID [facility] Enoxaparin Sodium (Lovenox) 40 mg SUB-Q QDAY@2200 [facility] Hydromorphone HCl (Dilaudid) 0.5 mg IV Q3H PRN PRN Reason: Pain , Severe (7-10) Stop: 09/23/18 23:59 Morphine Sulfate (Morphine) 2 mg IV Q4H PRN PRN Reason: Pain, Moderate (4-6) Stop: 09/23/18 23:59 Nitroglycerin (Nitrostat) 0.4 mg SL Q5M PRN PRN Reason: Chest Pain Ondansetron HCl (Zofran) 4 mg IV Q8H PRN PRN Reason: Nausea And Vomiting Oxycodone/Acetaminophen (Percocet 5/325) 1 tab PO Q6H PRN PRN Reason: Pain, Moderate (4-6) Pantoprazole Sodium (Protonix) 40 mg IV BID [facility] Sodium Chloride (Sodium Chloride Flush Syringe 10 Ml) 10 ml IV BID [facility] Sodium Chloride (Sodium Chloride Flush Syringe 10 Ml) 10 ml IV PRN PRN PRN Reason: LINE FLUSH Review of Systems All systems: negative (reviewed and no additional remarkable complaints except as noted below) Cardiovascular: chest pain (originates in abdomen and radiates to chest and back), dyspnea on exertion Respiratory: dyspnea on exertion Gastrointestinal: abdominal pain Genitourinary Female: dysuria Exam - Physical Exam Narrative exam: Physical exam General appearance: Present: No acute distress, alert and oriented 3, adult -Bel[place]ian Bel[place]ian female - EENT Eyes: Present: PERRL, EOM intact ENT: hearing intact, normal dentition - Neck Neck: Present: supple, normal ROM - Respiratory Respiratory effort: Non-labored Respiratory: bilateral: diminished (bases) - Cardiovascular Heart rate:75 (bpm) Rhythm: Sinus rhythm Heart Sounds: Present: S1 & S2. Absent: rub, click - Extremities Extremities: no ischemia, pulses intact - Peripheral Assessment Peripheral Pulses: within normal limits - Abdominal General gastrointestinal: soft, non-tender, normal bowel sounds - Integumentary Integumentary: Present: warm, dry - Musculoskeletal Musculoskeletal: generalized weakness -Neurological Neurological: CN II-XII intact - Psychiatric Psychiatric: cooperative - Constitutional Vitals: Temp Pulse Resp BP Pulse Ox 98 F 80 18 120/83 99 09/22/18 18:33 09/22/18 18:33 09/22/18 23:21 09/22/18 18:33 09/22/18 22:30 Results - Labs CBC & Chem 7: 09/22/18 18:46 09/22/18 18:46 Labs: Laboratory Last Values WBC 14.9 K/mm3 (4.5-11.0) H 09/22/18 18:46 RBC 5.06 M/mm3 (3.65-5.03) H 09/22/18 18:46 Hgb 12.2 gm/dl (10.1-14.3) 09/22/18 18:46 Hct 37.8 % (30.3-42.9) 09/22/18 18:46 MCV 75 fl (79-97) L 09/22/18 18:46 MCH 24 pg (28-32) L 09/22/18 18:46 MCHC 32 % (30-34) 09/22/18 18:46 RDW 15.2 % (13.2-15.2) 09/22/18 18:46 Plt Count 459 K/mm3 (140-440) H 09/22/18 18:46 Lymph % (Auto) 14.6 % (13.4-35.0) 09/22/18 18:46 [place] % (Auto) 3.6 % (0.0-7.3) 09/22/18 18:46 Eos % (Auto) 4.1 % (0.0-4.3) 09/22/18 18:46 Baso % (Auto) 1.2 % (0.0-1.8) 09/22/18 18:46 Lymph # 2.2 K/mm3 (1.2-5.4) 09/22/18 18:46 [place] # 0.5 K/mm3 (0.0-0.8) 09/22/18 18:46 Eos # 0.6 K/mm3 (0.0-0.4) H 09/22/18 18:46 Baso # 0.2 K/mm3 (0.0-0.1) H 09/22/18 18:46 Seg Neutrophils % 76.5 % (40.0-70.0) H 09/22/18 18:46 Seg Neutrophils # 11.4 K/mm3 (1.8-7.7) H 09/22/18 18:46 PT 15.9 Sec. (12.2-14.9) H 09/22/18 18:46 INR 1.30 (0.87-1.13) H 09/22/18 18:46 APTT 31.2 Sec. (24.2-36.6) 09/22/18 18:46 Sodium 135 mmol/L (137-145) L 09/22/18 18:46 Potassium 3.9 mmol/L (3.6-5.0) 09/22/18 18:46 Chloride 95.3 mmol/L (98-107) L 09/22/18 18:46 Carbon Dioxide 21 mmol/L (22-30) L 09/22/18 18:46 23 mmol/L 09/22/18 18:46 BUN 13 mg/dL (7-17) 09/22/18 18:46 1.1 mg/dL (0.7-1.2) 09/22/18 18:46 Estimated GFR > 60 ml/min 09/22/18 18:46 12 % 09/22/18 18:46 Glucose 75 mg/dL (65-100) 09/22/18 18:46 Calcium 9.7 mg/dL (8.4-10.2) 09/22/18 18:46 0.30 mg/dL (0.1-1.2) 09/22/18 18:46 AST 13 units/L (5-40) 09/22/18 18:46 ALT 10 units/L (7-56) 09/22/18 18:46 66 units/L (35-129) 09/22/18 18:46 < 0.010 ng/mL (0.00-0.029) 09/22/18 20:56 7.6 g/dL (6.3-8.2) 09/22/18 18:46 3.7 g/dL (3.9-5) L 09/22/18 18:46 0.9 % 09/22/18 18:46 - Imaging and Cardiology EKG: image reviewed (sinus rhythm 75 bpm) Chest x-ray: report reviewed (Impression: No pulmonary infiltrates are identified. ), image reviewed CT scan - abdomen: report reviewed (There is no evidence of intestinal or urinary tract obstruction. No ileus or enteritis. The appendix region is normal. The patient has had previous gastric bypass surgery. There is fatty infiltration of the liver.Minimal fluid in the lower pelvis is noted, this may be physiologic. ), image reviewed Imaging and Cardiology: CTA Chest: Impressions: No evidence of pulmonary embolus, vascular congestion, or aortic dissection. Mild atelectatic changes in the left lower lobe with small left-sided effusion. Minimal atelectatic changes in the right lower lobe. Assessment and Plan Assessment and plan: 48-year-old -[place]ian female who is a pt of Dr. Steven, with history of hypertension, GERD, arthritis, morbid obesity (s/p gastric bypass surgery ) who presents to [facility] ED with complaints of abdominal pain that radiates to her chest and back for the past 2 days. Additionally patient complains of intermittent discomfort with urination. Patient admits to haven't stress test in April of this year. She states it was normal and denies additional cardiac workup. CTA negative for PE. Troponin negative x2. EKG unrevealing for acute ischemic abnormalities. CXR unremarkable. Patient has elevated WBC at 14.9(is trending down from 18.4 on 09/17/18. Possibly due to inflammatory response related to recent gastric bypass surgery on 09/16/18. Given patient's complaint of discomfort with urination will order urine analysis to rule out UTI. Will admit as OBS to Telemetry. Acute abdominal pain Acute chest pain Suspicion of UTI Leukocytosis Hypertension GERD Arthritis (rt. Hip) Morbid obesity Plan: Continue supportive care Continuous telemetry monitoring Pain management Abdominal pain/chest pain likely due to untreated GERD will start on IV Protonix 40 mg twice a day UA pending, if positive for WBC in urine will start on abx Monitor WBC Continue clear liquid diet Monitor BP Resume home Coreg 12.5 mg twice a day ASA 81mg dialy, Lipitor 10mg daily Albuterol when necessary DVT PPX Lovenox Advance Directives: No VTE prophylaxis?: Chemical Plan of care discussed with patient/family: Yes <RAJIV WILEY - Last Filed: 09/28/18 23:05> History of Present Illness Date of admission: 09/23/18 01:31 Medications and Allergies Active Meds: Active Medications Acetaminophen (Tylenol) 650 mg PO Q4H PRN PRN Reason: Pain MILD(1-3)/Fever >100.5/JAMES Albuterol (Proventil) 2.5 mg IH Q4HRT PRN PRN Reason: Shortness Of Breath Aspirin (Baby Aspirin) 81 mg PO QDAY [facility] Atorvastatin Calcium (Lipitor) 10 mg PO QHS [facility] Carvedilol (Coreg) 12.5 mg PO BID [facility] Enoxaparin Sodium (Lovenox) 40 mg SUB-Q QDAY@2200 [facility] Hydromorphone HCl (Dilaudid) 0.5 mg IV Q3H PRN PRN Reason: Pain , Severe (7-10) Stop: 09/23/18 23:59 Morphine Sulfate (Morphine) 2 mg IV Q4H PRN PRN Reason: Pain, Moderate (4-6) Stop: 09/23/18 23:59 Nitroglycerin (Nitrostat) 0.4 mg SL Q5M PRN PRN Reason: Chest Pain Ondansetron HCl (Zofran) 4 mg IV Q8H PRN PRN Reason: Nausea And Vomiting Oxycodone/Acetaminophen (Percocet 5/325) 1 tab PO Q6H PRN PRN Reason: Pain, Moderate (4-6) Pantoprazole Sodium (Protonix) 40 mg IV BID [facility] Last Admin: 09/23/18 02:28 Dose: 40 mg Documented by: Sodium Chloride (Sodium Chloride Flush Syringe 10 Ml) 10 ml IV BID [facility] Sodium Chloride (Sodium Chloride Flush Syringe 10 Ml) 10 ml IV PRN PRN PRN Reason: LINE FLUSH Exam - Constitutional Vitals: Temp Pulse Resp BP Pulse Ox 98.4 F 70 18 119/86 98 09/23/18 03:24 09/23/18 03:24 09/23/18 03:24 09/23/18 03:24 09/23/18 03:24 Results - Labs CBC & Chem 7: 09/23/18 09:57 09/22/18 18:46 Labs: Laboratory Last Values WBC 14.9 K/mm3 (4.5-11.0) H 09/22/18 18:46 RBC 5.06 M/mm3 (3.65-5.03) H 09/22/18 18:46 Hgb 12.2 gm/dl (10.1-14.3) 09/22/18 18:46 Hct 37.8 % (30.3-42.9) 09/22/18 18:46 MCV 75 fl (79-97) L 09/22/18 18:46 MCH 24 pg (28-32) L 09/22/18 18:46 MCHC 32 % (30-34) 09/22/18 18:46 RDW 15.2 % (13.2-15.2) 09/22/18 18:46 Plt Count 459 K/mm3 (140-440) H 09/22/18 18:46 Lymph % (Auto) 14.6 % (13.4-35.0) 09/22/18 18:46 [place] % (Auto) 3.6 % (0.0-7.3) 09/22/18 18:46 Eos % (Auto) 4.1 % (0.0-4.3) 09/22/18 18:46 Baso % (Auto) 1.2 % (0.0-1.8) 09/22/18 18:46 Lymph # 2.2 K/mm3 (1.2-5.4) 09/22/18 18:46 [place] # 0.5 K/mm3 (0.0-0.8) 09/22/18 18:46 Eos # 0.6 K/mm3 (0.0-0.4) H 09/22/18 18:46 Baso # 0.2 K/mm3 (0.0-0.1) H 09/22/18 18:46 Seg Neutrophils % 76.5 % (40.0-70.0) H 09/22/18 18:46 Seg Neutrophils # 11.4 K/mm3 (1.8-7.7) H 09/22/18 18:46 PT 15.9 Sec. (12.2-14.9) H 09/22/18 18:46 INR 1.30 (0.87-1.13) H 09/22/18 18:46 APTT 31.2 Sec. (24.2-36.6) 09/22/18 18:46 Sodium 135 mmol/L (137-145) L 09/22/18 18:46 Potassium 3.9 mmol/L (3.6-5.0) 09/22/18 18:46 Chloride 95.3 mmol/L (98-107) L 09/22/18 18:46 Carbon Dioxide 21 mmol/L (22-30) L 09/22/18 18:46 23 mmol/L 09/22/18 18:46 BUN 13 mg/dL (7-17) 09/22/18 18:46 1.1 mg/dL (0.7-1.2) 09/22/18 18:46 Estimated GFR > 60 ml/min 09/22/18 18:46 12 % 09/22/18 18:46 Glucose 75 mg/dL (65-100) 09/22/18 18:46 Calcium 9.7 mg/dL (8.4-10.2) 09/22/18 18:46 0.30 mg/dL (0.1-1.2) 09/22/18 18:46 AST 13 units/L (5-40) 09/22/18 18:46 ALT 10 units/L (7-56) 09/22/18 18:46 66 units/L (35-129) 09/22/18 18:46 < 0.010 ng/mL (0.00-0.029) 09/22/18 20:56 7.6 g/dL (6.3-8.2) 09/22/18 18:46 3.7 g/dL (3.9-5) L 09/22/18 18:46 0.9 % 09/22/18 18:46 Red (Yellow) 09/23/18 02:55 Slightly-cloudy (Clear) 09/23/18 02:55 6.0 (5.0-7.0) 09/23/18 02:55 Ur Specific [place] > 1.059 (1.003-1.030) H 09/23/18 02:55 100 mg/dl mg/dL (Negative) 09/23/18 02:55 Neg mg/dL (Negative) 09/23/18 02:55 80 mg/dL (Negative) 09/23/18 02:55 Lg (Negative) 09/23/18 02:55 Neg (Negative) 09/23/18 02:55 Neg (Negative) 09/23/18 02:55 < 2.0 mg/dL (<2.0) 09/23/18 02:55 Ur Leukocyte Esterase Neg (Negative) 09/23/18 02:55 < 1.0 /HPF (0.0-6.0) 09/23/18 02:55 > 182.0 /HPF (0.0-6.0) 09/23/18 02:55 U Epithel Cells (Auto) 1.0 /HPF (0-13.0) 09/23/18 02:55 Few /HPF 09/23/18 02:55 Assessment and Plan Assessment and plan: 48-year-old woman with history of GERD, hypertension, morbid obesity, status post gastric bypass 6 days ago comes emergency room with complaints of chest pain. Agree with plan as stated above, in addition add blood cultures, no sign of infection, continue to monitor, hold antibiotic
[2018-09-23] MEDS: PROTONIX IV SCH ×2 (02:28→09:33)
[2018-09-23] MEDS ORDERED: ASPIRIN ONE (02:29)
[2018-09-23] MEDS ORDERED: PROTONIX IV ONE (02:29)
[2018-09-23 03:33] LABS: Bilirubin,Urine NEG (Negative); Blood,Urine LG (Negative); Color,Urine Red (Yellow); Mucus,Urine FEW /HPF; Urobilinogen,Urine < 2.0 mg/dL (<2.0)
[2018-09-23 03:41] LABS: RBC,Urine > 182.0 /HPF (0.0-6.0); WBC,Urine < 1.0 /HPF (0.0-6.0)
[2018-09-23 07:51] VITALS: BP 116/75
[2018-09-23] MEDS ORDERED: SODIUM CHLORIDE FLUSH SYRINGE 10 ML IV SCH (10:00)
[2018-09-23] MEDS ORDERED: COREG PO SCH (10:00)
[2018-09-23 10:22] LABS: Basophils % (Auto) 0.3 % (0.0-1.8); Eosinophils # (Auto) 0.6 K/mm3 (0.0-0.4); Eosinophils % (Auto) 4.6 % (0.0-4.3); Hematocrit 36.7 % (30.3-42.9); Lymphocytes # (Auto) 2.2 K/mm3 (1.2-5.4); Lymphocytes % (Auto) 16.3 % (13.4-35.0); Mean Corpuscular HGB Conc 33 % (30-34); Mean Corpuscular Volume 75 fl (79-97); Monocytes # (Auto) 0.6 K/mm3 (0.0-0.8); Monocytes % (Auto) 4.8 % (0.0-7.3); Platelet Count 446 K/mm3 (140-440); Red Blood Count 4.93 M/mm3 (3.65-5.03); Red Cell Distribution Width 15.8 % (13.2-15.2)
[2018-09-23] MEDS ORDERED: MYLICON PO PRN (11:36)
--- NOTE | 2018-09-23 12:15 | Discharge Summary ---
Providers - Providers Date of Admission: 09/23/18 01:31 Attending physician: MARIAN BUSH MD Primary care physician: DARYL CAMP Hospitalization Reason for admission: chest and abdominal pain Condition: Stable Hospital course: 48-year-old -[place] female with history of hypertension, GERD, arthritis, morbid obesity (s/p gastric bypass surgery 09/16/18) who presents to [facility] ED with complaints of abdominal pain. Patient states that she has been experiencing intermittent abdominal pain that radiates to her chest and back for the past 2 days. She describes her pain as sharp and rates it 10/10. There are no aggravating factors and it is relieved with pain medicine and rest. The chest pain is followed by intermittent shortness of breath. Patient admits to haven't stress test in April of this year. She states it was normal and denies additional cardiac workup. Patient has history of GERD and states that taken any medicine for treatment. Additionally patient complains of intermittent discomfort with urination. The discomfort is usually present with initiation of urination. She has an established PCP, Dr. Camp. Patient admitted to the floor; cardiac enzymes are negative. Patient had recent stress test which was negative and doesn't need to repeat. Abdominal pain and chest pain subsided. Patient is feeling well. No shortness of breath. Patient discharged home in a stable condition. Advised to have follow-up with PCP. Disposition: TO HOME OR SELFCARE Time spent for discharge: 32 minutes - Discharge Diagnoses (1) Chest pain Status: Acute (2) HTN (hypertension) Status: Acute Qualifiers: Hypertension type: essential hypertension Qualified Code(s): I10 - Essential (primary) hypertension Core Measure Documentation - Palliative Care Palliative Care/ Comfort Measures: Not Applicable - Core Measures Any of the following diagnoses?: none Exam - Physical Exam Narrative exam: Not in cardiopulmonary distress. The patient is obese. Vital signs as documented. Head exam is unremarkable. No scleral icterus . Neck is without jugular venous distension, thyromegaly, or carotid bruits. Lungs are clear to auscultation. Cardiac exam reveals regular rate and Rhythm. First and second heart sounds normal. No murmurs, rubs or gallops. Abdominal exam reveals normal bowel sounds, no masses, no organomegaly and no aortic enlargement. Extremities are nonedematous and both femoral and pedal pulses are normal. COUNSELOR AIDE: Alert and oriented 3. No focal weakness. - Constitutional Vitals: Temp Pulse Resp BP Pulse Ox 98.3 F 61 14 116/75 96 09/23/18 07:38 09/23/18 07:38 09/23/18 07:38 09/23/18 07:38 09/23/18 07:38 Plan Activity: no restrictions Weight Bearing Status: Full Weight Bearing Diet: low salt, low carbohydrate Follow up with: EMILY MASSEY MD [Referring] - 3-5 Days Prescriptions: Simethicone 80 mg PO AC #20 tab.chew
[2018-09-23] MEDS ORDERED: LOVENOX SUB-Q SCH (22:00)
[2018-09-23] MEDS ORDERED: PROTONIX PO SCH (22:00)
[2018-09-24] MEDS ORDERED: BABY ASPIRIN PO SCH (10:00)
== END 2018-09-23 13:50 | disposition home or self-care (01) ==
LOC: ED 18:26 → 4A 09-23 01:31
PROVIDERS: ADMIT Internal Medicine; ATTEND Internal Medicine
DX: R07.89 Other chest pain (principal); I10 Essential (primary) hypertension; K21.9 Gastro-esophageal reflux disease without esophagitis; E66.01 Morbid (severe) obesity due to excess calories; M19.90 Unspecified osteoarthritis, unspecified site; D72.829 Elevated white blood cell count, unspecified; Z98.890 Other specified postprocedural states; Z98.51 Tubal ligation status; Z87.891 Personal history of nicotine dependence
CPT/HCPCS: 36415; 71046; 71275; 74177; 80053; 81001; 84484; 85025; 85610; 85730; 87040; 93005; 93010; 96374; 96375; 96376; 99284; C9113; G0378; J1170; J2405; J3010; Q9967

== ENCOUNTER 2019-02-25 10:18 | Emergency (ER) | payer MEDICAID ==
--- NOTE | 2019-02-25 11:45 | Emergency Department Report ---
ED Rash HPI - HPI Chief Complaint: Skin Rash Stated Complaint: FACE SWOLLEN/RASH Time Seen by Provider: 02/25/19 10:55 Duration: Today Location: Head, Other (Face) Suspected Cause: Unknown Rash Symptoms: Yes Itching, Yes Facial Swelling, No Tongue/Oral Swelling, No Breathing Difficulties, No Choking Sensation, No Wheezing/Dyspnea, No Peeling, No Blistering, No Fever, No Lightheaded, No Malaise, No Myalgias Severity: mild ED Review of Systems ROS: Stated complaint: FACE SWOLLEN/HEADACHE Other details as noted in HPI Comment: All other systems reviewed and negative Respiratory: no symptoms reported Cardiovascular: denies: chest pain, palpitations, dyspnea on exertion, edema Skin: rash ED Past Medical Hx - Past Medical History Previous Medical History?: Yes Hx Hypertension: Yes (2002) Hx GERD: Yes Hx Renal Disease: No Hx Arthritis: Yes (IN RIGHT HIP) Hx Seizures: No Hx HIV: No Additional medical history: PITUITARY GLAND TUMOR - Surgical History Past Surgical History?: Yes Additional Surgical History: TUBAL LIGATION. HERNIA REPAIR. Gastric bypass 09/2018 - Social History Smoking Status: Former Smoker - Medications Home Medications: Home Medications Medication Instructions Recorded Confirmed Last Taken Type Lisinopril/Hydrochlorothiazide 1 tab PO QDAY 09/10/18 09/23/18 09/15/18 History [Zestoretic 20-25 mg] carvediloL [Coreg] 12.5 mg PO BID 09/10/18 09/23/18 09/16/18 05:20 History hydrOXYzine HCL [Atarax] 25 mg PO DAILY PRN 09/10/18 09/23/18 09/14/18 History Simethicone 80 mg PO AC #20 tab.chew 09/23/18 Unknown Rx Bacitracin 1 gm OP BID #1 oint...g. 02/25/19 Unknown Rx Cetirizine HCl [ZyrTEC 10mg cap] 10 mg PO DAILY #15 capsule 02/25/19 Unknown Rx predniSONE [Deltasone] 60 mg PO QDAY #15 tab 02/25/19 Unknown Rx Rash Exam - Exam General: Vital signs noted. No distress. Alert and acting appropriately. HEENT: No Periorbital Edema, No Conjuctival Injection, No Chemosis, No Perioral Edema, No Tongue Edema, No Uvular Edema, No Compromised Airway, No Drooling Lungs: No Good Air Exchange, No Wheezes, No Ronchi, No Stridor, No Cough, No Labored Respirations, No Retractions, No Use of Accessory Muscles, No Other Abnormal Lung Sounds Skin: Yes Maculopapular Rash, Yes Erythema, Yes Edema, No Urticarial Rash, No Morbilliform rash, No Bulla(e), No Excoriations, No Weeping, No Tenderness, No Encrustations, No Other (maculopapular erythematous, urticarial rash with mild to mod swelling noted left forehead and left upper lid. There is no ttp. No streaking redness noted. No induration or fluctuance noted.) Other: Positive: Neurologic Normal Critical care attestation.: If time is entered above; I have spent that time in minutes in the direct care of this critically ill patient, excluding procedure time. ED Disposition Clinical Impression: Local reaction to insect sting Disposition: DC-01 TO HOME OR SELFCARE Is pt being admited?: No Does the pt Need Aspirin: No Condition: Stable Instructions: Insect Bite or Sting (ED) Prescriptions: Bacitracin 1 gm OP BID #1 oint...g. predniSONE [Deltasone] 60 mg PO QDAY #15 tab Cetirizine HCl [ZyrTEC 10mg cap] 10 mg PO DAILY #15 capsule Referrals: PRIMARY CARE, [Primary Care Provider] - 3-5 Days Time of Disposition: 11:45
[2019-02-25 11:55] VITALS: BP 131/92
== END 2019-02-25 11:53 | disposition home or self-care (01) ==
LOC: ED 10:18
DX: T63.481A Toxic effect of venom of other arthropod, accidental (unintentional), initial encounter (principal); I10 Essential (primary) hypertension; K21.9 Gastro-esophageal reflux disease without esophagitis; Z98.51 Tubal ligation status; Z98.84 Bariatric surgery status; Z87.891 Personal history of nicotine dependence; Z79.899 Other long term (current) drug therapy; Y92.89 Other specified places as the place of occurrence of the external cause

== ENCOUNTER 2020-11-29 13:06 | Outpatient (CLI) | payer MEDICAID ==
--- NOTE | 2020-11-29 14:43 | XRay Report ---
LUMBAR SPINE 5 VIEWS INDICATION: Low back pain. COMPARISON: No relevant prior imaging study available. FINDINGS: VERTEBRAE: No acute fracture. Normal alignment. DISC SPACES: No significant abnormality. FACET JOINTS: Facet arthropathy is noted at L4-L5 and L5-S1. SOFT TISSUES: No significant abnormality. Hernia repair changes are seen along the midline of the upp er pelvis. ADDITIONAL FINDINGS: No additional significant findings. IMPRESSION: Mild degenerative changes along the lower lumbar facets without other significant abnormalities. Signer Name: Sukh Vitale MD Signed: 11/29/2020 2:38 PM Workstation Name: [id number]
== END 2020-11-29 13:07 | disposition home or self-care (01) ==
LOC: XRAY 13:06
PROVIDERS: ATTEND Internal Medicine
DX: M47.817 Spondylosis without myelopathy or radiculopathy, lumbosacral region (principal)
CPT/HCPCS: 72110

== ENCOUNTER 2020-12-30 08:11 | Day surgery (SDC) | payer MEDICAID ==
[~2020-12-30 08:11] MED LIST changes: -ANCEF/STERILE WATER 2 GM/20 ML 2 GM/20 ML SYRINGE IV NR; -FLAGYL 500 MG/100 ML 500 MG/100 ML BAG IV NR; -LOVENOX SUB-Q NR; +SODIUM CHLORIDE 0.9% 1000 ML 1,000 ML IV SCH; -TRANSDERM-SCOP TD SCH
--- NOTE | 2020-12-30 08:39 | Anesthesia Day of Surgery ---
Anesthesia Day of Surgery - Day of Surgery Patient Examined: Yes Patient H&P Reviewed: Yes Patient is NPO: Yes Beta Blockers: Yes
--- NOTE | 2020-12-30 08:39 | Anesthesia Consultation ---
Anesthesia Consult and Med Hx Date of service: 12/30/20 - Airway Anesthetic Teeth Evaluation: Chipped ROM Head & Neck: Adequate Mental/Hyoid Distance: Adequate Mallampati Class: Class II Intubation Access Assessment: Good - Pre-Operative Health Status ASA Pre-Surgery Classification: ASA2 Proposed Anesthetic Plan: MAC - Pulmonary Hx Smoking: Yes (SINCE AGE 15; QUIT 2013) Hx Sleep Apnea: Yes - Cardiovascular System Hx Hypertension: Yes (2002) - Central Nervous System Hx Seizures: No Hx Psychiatric Problems: Yes - Gastrointestinal Hx Ulcer: No Hx Gastroesophageal Reflux Disease: Yes - Endocrine Hx Renal Disease: No Hx Non-Insulin Dependent Diabetes: No - Hematic Hx Anemia: No Hx Sickle Cell Disease: No - Other Systems Hx Alcohol Use: Yes Hx Cancer: No Hx Obesity: Yes
[2020-12-30] MEDS ORDERED: LIDOCAINE MPF (2%) 20 MG/1 ML VIAL 5 ML ONE (10:44)
[2020-12-30] MEDS ORDERED: propofoL 200 MG/20 ML VIAL IV ONE ×2 (10:44)
--- NOTE | 2020-12-30 11:42 | Procedure Note ---
Date of procedure: 12/30/20 Pre-op diagnosis: Colon Polyp Screening/ F/H/O Cancer (mother Post-op diagnosis: other (Normal ColonMucosa (No Colon Polyp or diverticular Disease noted)/ Minor, Internal Hemorrhoid) Procedure: Colonoscopy Anesthesia: MAC Surgeon: DIEGO CARTER Estimated blood loss: none Pathology: none Condition: stable Disposition: same day (Resume home medication and F/U in 1 o 2 weeks ([phone]).)
--- NOTE | 2020-12-30 11:46 | Operative Report ---
DATE OF SURGERY: 12/30/2020 PROCEDURE: Colonoscopy. INDICATIONS: Thank you for the kind referral. This is a 50-year-old -[place] female with a family history of cancer. The patient's mother had ovarian cancer. Colonoscopy was done as part of colon polyp screening because of her age. DESCRIPTION OF PROCEDURE: Procedure was done after getting informed consent with MAC anesthesia. Initial rectal exam was unremarkable. The instrument was passed through the rectum onto the cecum, which was identified with ileocecal valve and the appendiceal orifice. Cecum was also visualized on the retroverted view. No additional pathology was noted. The terminal ileum was intubated, showed normal mucosa. The scope was withdrawn to the hepatic flexure and reintroduced and the cecum again appeared normal. Cecum, ascending colon, transverse colon, descending colon, and sigmoid showed normal mucosa. There was no evidence of any polyps, colitis or diverticular disease and the rectum showed some minor internal hemorrhoids on the retroverted view. There were no biopsies done. No bleeding associated with the procedure. No complications associated with the procedure. ASSESSMENT: Colon polyp screening, family history of cancer. No colon polyps noted. No diverticula. Minor internal hemorrhoid. PLAN: To resume home medication and have the patient follow up in the office in 1-2 weeks' time. Procedure was done in the GI Lab with the assistance of the GI Lab team, which included the GI nurse, maintenance shop technician and with the assistance of Anesthesia. TID: [id number] RECEIPT: [id number] JEWEL/JU cc: DARYL CAMP MD
[2020-12-30 11:52] VITALS: BP 149/94
--- NOTE | 2020-12-30 16:30 | Post Anesthesia Evaluation ---
- Post Anesthesia Evaluation Patient Participated: Yes Airway Patent: Yes Stable Respiratory Function: Yes Nausea/Vomiting: No Temp > 96.8F: Yes Pain Manageable: Yes Adequeate Hydration: Yes Anesthesia Complications: No Block Receding Appropriately: Not Applicable Patient on Ventilator: No
== END 2020-12-30 12:20 | disposition home or self-care (01) ==
LOC: GIO 08:11
DX: K59.09 Other constipation (principal); K64.0 First degree hemorrhoids; K63.89 Other specified diseases of intestine; Z80.0 Family history of malignant neoplasm of digestive organs; I10 Essential (primary) hypertension; G47.30 Sleep apnea, unspecified; K21.9 Gastro-esophageal reflux disease without esophagitis; M19.90 Unspecified osteoarthritis, unspecified site; F32.9 Major depressive disorder, single episode, unspecified; Z98.51 Tubal ligation status; Z98.890 Other specified postprocedural states; Z87.891 Personal history of nicotine dependence; Z79.899 Other long term (current) drug therapy
CPT/HCPCS: 45378; J2704; J7030

== ENCOUNTER 2021-02-13 09:01 | Outpatient (CLI) | payer MEDICAID ==
--- NOTE | 2021-02-13 10:05 | XRay Report ---
X-RAY LUMBOSACRAL SPINE MULTIPLE VIEWS INDICATION: Low back pain COMPARISON: Radiographs 11/29/2020 FINDINGS: Vertebral body heights are preserved. No acute displaced fracture. Hypertrophic facet changes at L4-L 5 and L5-S1 have a similar appearance compared to prior exam. Hernia repair changes are again seen. Multiple phleboliths in the pelvis. CONCLUSION: No acute abnormality. Stable degenerative changes as above. Signer Name: Ganga Calderón MD Signed: 02/13/2021 10:00 AM Workstation Name: [email or web address]
== END 2021-02-13 09:02 | disposition home or self-care (01) ==
LOC: XRAY 09:01
PROVIDERS: ATTEND Orthopaedic Surgery
DX: M47.817 Spondylosis without myelopathy or radiculopathy, lumbosacral region (principal); I87.8 Other specified disorders of veins
CPT/HCPCS: 72110